=== PATIENT | female | born 1985 | race African-American/Black ===

== ENCOUNTER 2019-01-31 12:54 | Emergency (ER) | payer OTHER ==
[2019-01-31] MEDS ORDERED: ALBUTEROL 2.5 MG/3 ML NEB SOL ONE (13:31)
[2019-01-31] MEDS ORDERED: IPRATROPIUM BROM 0.5MG/2.5ML ONE (13:31)
[2019-01-31] MEDS ORDERED: METHYLPREDNISOLONE 125 MG INJ ONE (13:31)
[2019-01-31 13:44] LABS: Basophils % 0.6 % (0-1.3); Hematocrit 34.5 % (36.0-45.0); Lymphocytes % 19.8 % (15.3-44.8); MPV 8.1 fL (7.6-11.3); Protime INR 0.95; RBC Red Blood Cell Count 4.67 M/uL (3.86-4.86)
[2019-01-31 14:02] LABS: ALT/SGPT 30 U/L (12-78); AST/SGOT 16 U/L (15-37); Albumin 3.4 g/dL (3.4-5.0); Alkaline Phosphatase 73 U/L (45-117); BUN Blood Urea Nitrogen 12 mg/dL (7-18); Bicarbonate 32 mmol/L (21-32); Bilirubin Direct < 0.1 mg/dL (0-0.2); Bilirubin Total 0.2 mg/dL (0.2-1.0); Glucose Level 230 mg/dL (74-106); NT PRO-BNP 57 pg/mL (<125); Potassium 3.7 mmol/L (3.5-5.1); Protein, Total 7.7 g/dL (6.4-8.2); Sodium Level 141 mmol/L (136-145)
--- NOTE | 2019-01-31 14:39 | EDPHYS ---
Physician Documentation [facility] Name: Terri Kline Age: 33 yrs Sex: Female : 1985 Arrival Date: 01/31/2019 Time: 12:59 Bed 20 Private MD: ED Physician Dylon Buchanan HPI: 01/31 13:40 This 33 yrs old Black Female presents to ER via Ambulatory with complaints of Cough. ma2 13:40 Onset: The symptoms/episode began/occurred gradually, 3 day(s) ago. Severity of ma2 symptoms: At their worst the symptoms were moderate, in the emergency department the symptoms are unchanged. Associated signs and symptoms: Pertinent negatives: ear ache, rhinorrhea, sore throat. The patient has experienced similar episodes in the past. Historical: - Allergies: 13:10 No Known Allergies; la1 - PMHx: 13:10 Asthma; la1 - Immunization history:: Adult Immunizations up to date. - Social history:: Smoking status: Patient/guardian denies using tobacco, Patient/guardian denies using alcohol, street drugs, The patient lives with family. - Ebola Screening: : No symptoms or risks identified at this time. - Family history:: not pertinent. ROS: 13:40 Constitutional: Negative for fever, chills, and weight loss. ma2 13:40 All other systems are negative. Exam: 13:40 Constitutional: This is a well developed, well nourished patient who is awake, alert, ma2 and in no acute distress. ENT: Nares patent. No nasal discharge, no septal abnormalities noted. Tympanic membranes are normal and external auditory canals are clear. Oropharynx with no redness, swelling, or masses, exudates, or evidence of obstruction, uvula midline. Mucous membranes moist. Chest/axilla: Normal chest wall appearance and motion. Nontender with no deformity. No lesions are appreciated. Cardiovascular: Regular rate and rhythm with a normal S1 and S2. No gallops, murmurs, or rubs. Normal PMI, no JVD. No pulse deficits. Respiratory: mild bilat exp, wheezes.. oterwise Lungs have equal breath sounds bilaterally, clear to auscultation and percussion. No rales, rhonchi or wheezes noted. No increased work of breathing, no retractions or nasal flaring. Abdomen/GI: Soft, non-tender, with normal bowel sounds. No distension or tympany. No guarding or rebound. No evidence of tenderness throughout. Vital Signs: 13:10 BP 120 / 81; Pulse 109; Resp 20; Temp 99.2; Pulse Ox 98% on R/A; Weight 81.65 kg; la1 Height 5 ft. 0 in. (152.40 cm); 13:33 BP 131 / 89; Pulse 89; Resp 24; Pulse Ox 98% on R/A; Pain 0/10; em 14:30 BP 134 / 92; Pulse 94; Resp 18; Pulse Ox 100% on R/A; Pain 0/10; em 13:10 Body Mass Index 35.15 (81.65 kg, 152.40 cm) la1 MDM: 13:12 Patient medically screened. ma2 13:40 Differential Diagnosis: Bronchitis Upper Respiratory Infection Sinusitis. ma2 14:38 Data reviewed: vital signs, nurses notes. Counseling: I had a detailed discussion with ma2 the patient and/or guardian regarding: the historical points, exam findings, and any diagnostic results supporting the discharge/admit diagnosis, the presence of at least one elevated blood pressure reading (>120/80) during this emergency department visit, the need for outpatient follow up. Response to treatment: the patient's symptoms have markedly improved after treatment. 01/31 13:19 Order name: Basic Metabolic Panel; Complete Time: 14:29 vt2 01/31 13:19 Order name: CBC with Diff; Complete Time: 14:29 vt2 01/31 13:19 Order name: LFT's; Complete Time: 14:29 vt2 01/31 13:19 Order name: Magnesium; Complete Time: 14:29 vt2 01/31 13:19 Order name: NT PRO-BNP; Complete Time: 14:29 vt2 01/31 13:19 Order name: PT-INR; Complete Time: 14:29 vt2 01/31 13:19 Order name: XRAY Chest (1 view) [facility] 01/31 13:19 Order name: Cardiac monitoring; Complete Time: 13:28 vt2 01/31 13:19 Order name: EKG - Nurse/Tech; Complete Time: 15:19 [facility] 01/31 13:19 Order name: IV Saline Lock; Complete Time: 13:28 vt2 01/31 13:19 Order name: Labs collected and sent; Complete Time: : vt2 01/31 13:19 Order name: O2 Per Protocol; Complete Time: ma2 01/31 13:19 Order name: O2 Sat Monitoring; Complete Time: : ma2 Administered Medications: 13:38 Drug: SOLU-Medrol 125 mg Route: IVP; Site: left antecubital; ss 14:30 Follow up: Response: No adverse reaction em 13:38 Not Given (Other Intervention Used): AtroVENT Aerosol 0.5 mg Inhalation once; Every 20 em min for a total of 3 treatments x3 13:39 Drug: Albuterol 2.5 mg Route: Inhalation; em 13:39 Drug: Albuterol 2.5 mg Route: Inhalation; em 13:39 Drug: AtroVENT Aerosol 0.5 mg Route: Inhalation; em 14:30 Follow up: Response: No adverse reaction; Marked relief of symptoms em 13:40 Drug: Albuterol 2.5 mg Route: Inhalation; em 14:30 Follow up: Response: No adverse reaction; Marked relief of symptoms em Disposition: 01/31/19 14:39 Discharged to Home. Impression: Moderate persistent asthma with (acute) exacerbation, Acute bronchitis. - Condition is Stable. - Discharge Instructions: Acute Bronchitis, Adult, Asthma, Adult. - Prescriptions for Albuterol Sulfate 2.5 mg /3 mL (0.083 %) Inhalation Solution for Nebulization - inhale 1 unit by NEBULIZATION route every 8 hours As needed; 1 box. Zithromax Z- Matthias 250 mg Oral Tablet - take 1 tablet by ORAL route as directed for 5 days Day 1 - take two (2) tablets one time. Day 2, 3, 4 , 5 take one (1) tablet once daily.; 6 tablet. Medrol (Matthias) 4 mg Oral Tablets, Dose Pack - take 1 tablet by ORAL route as directed - follow package instructions; 1 packet. - Medication Reconciliation Form, Thank You Letter, Antibiotic Education, Prescription Opioid Use form. - Work release form (01/31/19 17:06). eb - Follow up: Private Physician; When: Tomorrow; Reason: Recheck today's complaints, Continuance of care. Signatures: Dispatcher [employer] EDMeng Em, ROAD EQUIPMENT OPERATOR ROAD EQUIPMENT OPERATOR em Sofiya Carpenter RN RN ss Bryan Wetzel RN RN la1 Dyoln Buchanan MD MD ma2 Jane Billings Corrections: (The following items were deleted from the chart) 15:20 14:39 01/31/2019 14:39 Discharged to Home. Impression: Moderate persistent asthma with em (acute) exacerbation; Acute bronchitis. Condition is Stable. Discharge Instructions: Asthma, Adult. Prescriptions for Albuterol Sulfate 2.5 mg /3 mL (0.083 %) Inhalation Solution for Nebulization - inhale 1 unit by NEBULIZATION route every 8 hours As needed; 1 box, Zithromax Z-Matthias 250 mg Oral Tablet - take 1 tablet by ORAL route as directed for 5 days Day 1 - take two (2) tablets one time. Day 2, 3, 4 , 5 take one (1) tablet once daily.; 6 tablet, Medrol (Matthias) 4 mg Oral Tablets, Dose Pack - take 1 tablet by ORAL route as directed - follow package instructions; 1 packet. and Forms are Medication Reconciliation Form, Thank You Letter, Antibiotic Education, Prescription Opioid Use. Follow up: Private Physician; When: Tomorrow; Reason: Recheck today's complaints, Continuance of care. ma2
--- NOTE | 2019-01-31 14:39 | ER ---
Nurse's Notes [facility] [place], [place] Name: Terri Kline Age: 33 yrs Sex: Female : 1985 Arrival Date: 01/31/2019 Time: 12:59 Bed 20 Private MD: Diagnosis: Moderate persistent asthma with (acute) exacerbation;Acute bronchitis Presentation: 01/31 13:10 Presenting complaint: Patient states: cough for the last week, malaise. Had pneumonia la1 in September and was admitted, they also said I had fluid at some point too. Transition of care: patient was not received from another setting of care. Onset of symptoms was January 31, 2019. Risk Assessment: Do you want to hurt yourself or someone else? Patient reports no desire to harm self or others. Initial Sepsis Screen: Does the patient meet any 2 criteria? HR > 90 bpm. Does the patient have a suspected source of infection? Yes: Productive cough/pneumonia. Care prior to arrival: None. 13:10 Method Of Arrival: Ambulatory la1 13:10 Acuity: JOVITA 3 la1 Historical: - Allergies: 13:10 No Known Allergies; la1 - PMHx: 13:10 Asthma; la1 - Immunization history:: Adult Immunizations up to date. - Social history:: Smoking status: Patient/guardian denies using tobacco, Patient/guardian denies using alcohol, street drugs, The patient lives with family. - Ebola Screening: : No symptoms or risks identified at this time. - Family history:: not pertinent. Screenin:33 Abuse screen: Denies threats or abuse. Nutritional screening: No deficits noted. em Tuberculosis screening: No symptoms or risk factors identified. Fall Risk None identified. Assessment: 13:33 General: Appears in no apparent distress. comfortable, Behavior is calm, cooperative, em Denies fever. Pain: Complains of pain in chest Pain currently is 0 out of 10 on a pain scale. at worst was 4 out of 10 on a pain scale. Neuro: Level of Consciousness is awake, alert, obeys commands, Oriented to person, place, time, situation, Appropriate for age. Cardiovascular: Capillary refill < 3 seconds Patient's skin is warm and dry. Respiratory: Reports pain with cough Airway is patent Respiratory effort is even, unlabored, Respiratory pattern is regular, symmetrical, Breath sounds with wheezes bilaterally. GI: Abdomen is round non-distended, Abd is soft and non tender X 4 quads. Derm: Skin is intact, is healthy with good turgor, Skin is pink, warm \T\ dry. Musculoskeletal: Capillary refill < 3 seconds, Range of motion: intact in all extremities. 13:35 Reassessment: The previous assessment is accurate, call light remains within reach. ss 14:30 Reassessment: placed on 2L via NC, SPO2 86% on room air after falling asleep, provider em notified, SPO2 96% on 2 L. Vital Signs: 13:10 BP 120 / 81; Pulse 109; Resp 20; Temp 99.2; Pulse Ox 98% on R/A; Weight 81.65 kg; la1 Height 5 ft. 0 in. (152.40 cm); 13:33 BP 131 / 89; Pulse 89; Resp 24; Pulse Ox 98% on R/A; Pain 0/10; em 14:30 BP 134 / 92; Pulse 94; Resp 18; Pulse Ox 100% on R/A; Pain 0/10; em 13:10 Body Mass Index 35.15 (81.65 kg, 152.40 cm) la1 ED Course: 12:59 Patient arrived in ED. mr 13:10 Arm band placed on left wrist. la1 13:12 Triage completed. la1 13:12 Dylon Buchanan MD is Attending Physician. ma2 13:20 Meng Orozco LVN is Primary Nurse. em 13:32 Inserted saline lock: 22 gauge in left antecubital area, using aseptic technique. Blood kj1 collected. 13:33 Patient has correct armband on for positive identification. Placed in gown. Bed in low em position. Call light in reach. bus driver/monitor on. Pulse ox on. NIBP on. 13:37 Initial lab(s) drawn, by me, sent to lab. kj1 14:10 XRAY Chest (1 view) In Process Unspecified. EDMS 15:20 No provider procedures requiring assistance completed. IV discontinued, intact, em bleeding controlled, No redness/swelling at site. Pressure dressing applied. Administered Medications: 13:38 Drug: SOLU-Medrol 125 mg Route: IVP; Site: left antecubital; ss 14:30 Follow up: Response: No adverse reaction em 13:38 Not Given (Other Intervention Used): AtroVENT Aerosol 0.5 mg Inhalation once; Every 20 em min for a total of 3 treatments x3 13:39 Drug: Albuterol 2.5 mg Route: Inhalation; em 13:39 Drug: Albuterol 2.5 mg Route: Inhalation; em 13:39 Drug: AtroVENT Aerosol 0.5 mg Route: Inhalation; em 14:30 Follow up: Response: No adverse reaction; Marked relief of symptoms em 13:40 Drug: Albuterol 2.5 mg Route: Inhalation; em 14:30 Follow up: Response: No adverse reaction; Marked relief of symptoms em Outcome: 14:39 Discharge ordered by MD. naranjo 15:20 Discharged to home ambulatory. em 15:20 Condition: good 15:20 Discharge instructions given to patient, Instructed on discharge instructions, follow up and referral plans. medication usage, Demonstrated understanding of instructions, follow-up care, medications, Prescriptions given X 3. 15:20 Patient left the ED. em Signatures: Dispatcher [employer] Alisha Montilla mr Meng Orozco, GYMNASIUM TEACHER GYMNASIUM TEACHER Sofiya Vásquez RN RN ss Attema, Lee, RN RN Dylon Akers MD MD ma2 Jia Bonilla kj1
[2019-01-31 15:53] VITALS: TEMP 99.2
--- NOTE | 2019-01-31 15:54 | RAD REPORT ---
EXAM DESCRIPTION: Mikhail Single View01/31/2019 2:09 pm CLINICAL HISTORY: cough COMPARISON: none FINDINGS: Left lung base is hazy The remainder of the lungs appear clear of acute infiltrate. The heart is normal size. Bruner ro ds are present within the thoracic spine. IMPRESSION: Left base is hazy which may indicate pneumonia. This should be followed until it is betina ar to exclude a post obstructive process/underlying mass
[2019-01-31 15:56] VITALS: BP 134/92; O2SAT 100
== END 2019-01-31 15:20 | disposition home or self-care (01) ==
LOC: ER 12:54
DX: J45.31 Mild persistent asthma with (acute) exacerbation (principal); J20.9 Acute bronchitis, unspecified
CPT/HCPCS: 85025; 80048; 36415; 83735; 85610; 80076; 83880; 71045; 96374; 99285; J2930

== ENCOUNTER 2019-02-03 13:35 | Emergency (ER) | payer OTHER ==
[2019-02-03] MEDS ORDERED: IPRATROPIUM BROM 0.5MG/2.5ML ONE (14:37)
[2019-02-03] MEDS ORDERED: ALBUTEROL 2.5 MG/3 ML NEB SOL ONE (14:37)
--- NOTE | 2019-02-03 15:13 | RAD REPORT ---
EXAM DESCRIPTION: Mikhail Pa And Lat (2 Views)02/03/2019 3:01 pm CLINICAL HISTORY: Cough COMPARISON: January 31, 2018 FINDINGS: Left basilar opacities have resolved. The lungs appear clear of acute infiltrate. Heart is normal size. Bruner rods are present within the thoracic spine. Scoliosis
--- NOTE | 2019-02-03 15:17 | EDPHYS ---
Physician Documentation [facility] Name: Terri Kline Age: 33 yrs Sex: Female : 1985 Arrival Date: 02/03/2019 Time: 13:37 Bed 14 Private MD: ED Physician Agusto Urban HPI: 02/03 14:40 This 33 yrs old Black Female presents to ER via Ambulatory with complaints of Cough, kb Shortness Of Breath. 14:40 The patient or guardian reports cough, that is intermittent, described as mild, with no kb sputum, difficulty breathing. Onset: The symptoms/episode began/occurred Onset: The symptoms/episode began/occurred 1 week(s) ago. The patient has experienced similar episodes in the past. The patient has been recently seen at the [facility] Emergency Department, last week, for similar complaints labs were performed, X-rays were performed, was given a prescription for antibiotics. 14:42 Severity of symptoms: At their worst the symptoms were moderate, in the emergency kb department the symptoms are unchanged. Modifying factors: The symptoms are alleviated by nothing, the symptoms are aggravated by nothing. Associated signs and symptoms: The patient has no apparent associated signs or symptoms. Pt reports cough and shortness of breath for a week. Was seen 3 days ago and diagnosed with bronchitis. Started on zithromax and steroids with no improvement. 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 - Social history:: Smoking status: Patient/guardian denies using tobacco. - Ebola Screening: : No symptoms or risks identified at this time. ROS: 14:42 Constitutional: Negative for fever, chills, and weight loss, ENT: Negative for injury, kb pain, and discharge, Neck: Negative for injury, pain, and swelling, Cardiovascular: Negative for chest pain, palpitations, and edema, Abdomen/GI: Negative for abdominal pain, nausea, vomiting, diarrhea, and constipation, Back: Negative for injury and pain, : Negative for injury, bleeding, discharge, and swelling, MS/Extremity: Negative for injury and deformity, Skin: Negative for injury, rash, and discoloration, Neuro: Negative for headache, weakness, numbness, tingling, and seizure. 14:42 Respiratory: Positive for cough, shortness of breath. Exam: 14:42 Constitutional: This is a well developed, well nourished patient who is awake, alert, kb and in no acute distress. Head/Face: Normocephalic, atraumatic. ENT: Nares patent. No nasal discharge, no septal abnormalities noted. Tympanic membranes are normal and external auditory canals are clear. Oropharynx with no redness, swelling, or masses, exudates, or evidence of obstruction, uvula midline. Mucous membranes moist. Neck: Trachea midline, no thyromegaly or masses palpated, and no cervical lymphadenopathy. Supple, full range of motion without nuchal rigidity, or vertebral point tenderness. No Meningismus. Chest/axilla: Normal chest wall appearance and motion. Nontender with no deformity. No lesions are appreciated. Cardiovascular: Regular rate and rhythm with a normal S1 and S2. No gallops, murmurs, or rubs. Normal PMI, no JVD. No pulse deficits. Abdomen/GI: Soft, non-tender, with normal bowel sounds. No distension or tympany. No guarding or rebound. No evidence of tenderness throughout. Back: No spinal tenderness. No costovertebral tenderness. Full range of motion. Skin: Warm, dry with normal turgor. Normal color with no rashes, no lesions, and no evidence of cellulitis. MS/ Extremity: Pulses equal, no cyanosis. Neurovascular intact. Full, normal range of motion. Neuro: Awake and alert, GCS 15, oriented to person, place, time, and situation. Cranial nerves II-XII grossly intact. Motor strength 5/5 in all extremities. Sensory grossly intact. Cerebellar exam normal. Normal gait. 14:42 Respiratory: the patient does not display signs of respiratory distress, Respirations: normal, Breath sounds: wheezing: inspiratory that is mild, is heard in the right upper lobe, left upper lobe, left lower lobe and left posterior lower lobe. Vital Signs: 13:55 BP 136 / 89; Pulse 86; Resp 20; Temp 98.9; Pulse Ox 94% on R/A; Weight 81.65 kg; Height hb 5 ft. (152.40 cm); Pain 6/10; 15:30 BP 137 / 82; Pulse 88; Resp 20; Pulse Ox 96% on R/A; aj1 13:55 Body Mass Index 35.15 (81.65 kg, 152.40 cm) hb MDM: 14:01 Patient medically screened. kb 14:46 Data reviewed: vital signs, nurses notes. Data interpreted: Pulse oximetry: on room air kb is 94 %. Interpretation: acceptable. 15:15 Counseling: I had a detailed discussion with the patient and/or guardian regarding: the kb historical points, exam findings, and any diagnostic results supporting the discharge/admit diagnosis, lab results, radiology results, the need for outpatient follow up, a family practitioner, to return to the emergency department if symptoms worsen or persist or if there are any questions or concerns that arise at home. 02/03 14:14 Order name: Flu; Complete Time: 15:03 kb 02/03 14:14 Order name: Chest Pa And Lat (2 Views) XRAY; Complete Time: 15:17 kb Administered Medications: 14:45 Drug: DuoNeb (3:1) (2.5 mg - 0.5 mg) 3 ml Route: Nebulizer; aj1 Disposition: 02/03/19 15:16 Discharged to Home. Impression: Acute bronchitis, Asthma. - Condition is Stable. - Discharge Instructions: Acute Bronchitis, [id number], Asthma, Adult, [id number]. - Medication Reconciliation Form, Thank You Letter, Antibiotic Education, Prescription Opioid Use, Work release form form. - Follow up: Emergency Department; When: As needed; Reason: Worsening of condition. Follow up: Private Physician; When: 2 - 3 days; Reason: Recheck today's complaints, Continuance of care, Re-evaluation by your physician. Addendum: 02/06/2019 19:35 Co-signature as Attending Physician, Agusto Urban MD. r n Signatures: Dispatcher [employer] EDIdaila Jenkins, CREWMAN ARMOURED PERSONNEL CARRIER M113-C CREWMAN ARMOURED PERSONNEL CARRIER [id number] Betsy Barakat RN RN aj1 Agusto Urban MD MD rn Baxter, Heather, RN RN Corrections: (The following items were deleted from the chart) 02/03 14:45 14:40 Onset: The symptoms/episode began/occurred kb kb 15:59 15:16 02/03/2019 15:16 Discharged to Home. Impression: Acute bronchitis; Asthma. aj1 Condition is Stable. Forms are Medication Reconciliation Form, Thank You Letter, Antibiotic Education, Prescription Opioid Use. Follow up: Emergency Department; When: As needed; Reason: Worsening of condition. Follow up: Private Physician; When: 2 - 3 days; Reason: Recheck today's complaints, Continuance of care, Re-evaluation by your physician. kb
--- NOTE | 2019-02-03 15:17 | ER ---
Nurse's Notes [facility] Name: Terri Kline Age: 33 yrs Sex: Female : 1985 Arrival Date: 02/03/2019 Time: 13:37 Bed 14 Private MD: Diagnosis: Acute bronchitis;Asthma Presentation: 02/03 13:51 Presenting complaint: Cough, SOB, sinus congestion, and headache x 1 week.. Seen in ED hb for same s/s 4 days ago, on Zithromax Day 3. Transition of care: patient was not received from another setting of care. Onset of symptoms was February 03, 2019. Risk Assessment: Do you want to hurt yourself or someone else? Patient reports no desire to harm self or others. Care prior to arrival: None. 13:51 Method Of Arrival: Ambulatory 13:51 Acuity: JOVITA 3 hb 15:59 Initial Sepsis Screen: Does the patient meet any 2 criteria? No. Patient's initial aj1 sepsis screen is negative. Does the patient have a suspected source of infection? Yes: Productive cough/pneumonia. 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 - Social history:: Smoking status: Patient/guardian denies using tobacco. - Ebola Screening: : No symptoms or risks identified at this time. Screenin:45 Abuse screen: Denies threats or abuse. Denies injuries from another. Nutritional aj1 screening: No deficits noted. Tuberculosis screening: No symptoms or risk factors identified. Assessment: 14:45 General: Appears in no apparent distress. uncomfortable. Pain: Denies pain. Neuro: aj1 Level of Consciousness is awake, alert, obeys commands, Oriented to person, place, time, situation. Cardiovascular: Heart tones S1 S2 present Patient's skin is warm and dry. Rhythm is regular. Respiratory: Airway is patent Respiratory effort is even, unlabored, Respiratory pattern is regular, symmetrical, Breath sounds with wheezes bilaterally. GI: No signs and/or symptoms were reported involving the gastrointestinal system. : No signs and/or symptoms were reported regarding the genitourinary system. EENT: No signs and/or symptoms were reported regarding the EENT system. Derm: No signs and/or symptoms reported regarding the dermatologic system. Skin is pink, warm \T\ dry. normal. Musculoskeletal: No signs and/or symptoms reported regarding the musculoskeletal system. Circulation, motion, and sensation intact. Vital Signs: 13:55 BP 136 / 89; Pulse 86; Resp 20; Temp 98.9; Pulse Ox 94% on R/A; Weight 81.65 kg; Height hb 5 ft. (152.40 cm); Pain 6/10; 15:30 BP 137 / 82; Pulse 88; Resp 20; Pulse Ox 96% on R/A; aj1 13:55 Body Mass Index 35.15 (81.65 kg, 152.40 cm) hb ED Course: 13:37 Patient arrived in ED. rg4 13:41 Idalia Bonilla FNP-C is PHCP. kb 13:41 Agusto Urban MD is Attending Physician. kb 13:54 Triage completed. hb 13:55 Arm band placed on. hb 14:35 Betsy Barakat, RN is Primary Nurse. aj1 14:45 Patient has correct armband on for positive identification. Bed in low position. Call aj1 light in reach. Side rails up X 1. 14:45 No provider procedures requiring assistance completed. Patient did not have IV access aj1 during this emergency room visit. 15:01 Chest Pa And Lat (2 Views) XRAY In Process Unspecified. EDMS Administered Medications: 14:45 Drug: DuoNeb (3:1) (2.5 mg - 0.5 mg) 3 ml Route: Nebulizer; aj1 Outcome: 15:16 Discharge ordered by . kb 15:59 Discharged to home ambulatory. aj1 15:59 Condition: good 15:59 Discharge instructions given to patient, Instructed on discharge instructions, follow up and referral plans. Demonstrated understanding of instructions, follow-up care. 15:59 Patient left the ED. aj1 Signatures: Dispatcher [employer] EDMS Idalia Bonilla FNP-C FNP-Ckb Johnson, Angela RN RN aj1 Ro Garza RN RN Alejandra Bazzi rg4
[2019-02-03 16:06] VITALS: TEMP 98.9
[2019-02-03 16:08] VITALS: BP 137/82; O2SAT 96
== END 2019-02-03 15:59 | disposition home or self-care (01) ==
LOC: ER 13:35
DX: J20.9 Acute bronchitis, unspecified (principal); J45.909 Unspecified asthma, uncomplicated
CPT/HCPCS: 71046; 87804; 94640; 99284